=== PATIENT | male | born 1965 | race Caucasian/White ===

== ENCOUNTER 2017-08-15 10:22 | Outpatient (CLI) | payer BC ==
[2017-08-15 11:45] LABS: #Basophils 0.1 thou/uL (0.0-0.2); #Monocytes 0.8 thou/uL (0.11-0.59); #Neutrophils 5.6 thou/uL (1.40-6.50); %Basophils 1.1 % (0.0-1.0); %Eosinophils 9.2 % (0.0-10.0); %Lymphocytes 28.4 % (21.0-51.0); %Monocytes 7.8 % (0.0-10.0); Hematocrit 44.1 % (42.0-52.0); Mean Platelet Volume 6.6 fL (7.4-10.4); Red Blood Cell (RBC) Count 4.62 mill/uL (4.70-6.10); White Blood Cell (WBC) Count 10.6 thou/uL (4.8-10.8)
[2017-08-15 12:02] LABS: Anion Gap 9 mmol/L (10-20); BUN (Urea Nitrogen) 12 mg/dL (8.4-25.7); Calc. Creatinine Clearance 0 mL/min (70-130); Calcium 9.4 mg/dL (7.8-10.44); Carbon Dioxide 28 mmol/L (22-29); Chloride 104 mmol/L (98-107); Estimated GFR-MDRD Greater than 90
== END 2017-08-15 10:23 | disposition home or self-care (01) ==
LOC: LABBT 10:22
PROVIDERS: ATTEND Specialist
DX: Z01.818 Encounter for other preprocedural examination (principal); K40.90 Unilateral inguinal hernia, without obstruction or gangrene, not specified as recurrent
CPT/HCPCS: 80048; 85025; 93005; 93010

== ENCOUNTER 2017-08-24 10:14 | Day surgery (SDC) | payer BC ==
[2017-08-15 10:30] VITALS: BMI 33.1
[2017-08-24] MEDS ORDERED: CEFAZOLIN/Water 2 GM/20 ML SYRINGE ONE (11:12)
[2017-08-24] MEDS ORDERED: Ketorolac Tromethamine 30 MG/ML VIAL ONE ×3 (11:12→18:14)
[2017-08-24] MEDS ORDERED: Betamet Acet/Betamet Na Ph 30 MG/5 ML VIAL ONE (12:28)
[2017-08-24] MEDS ORDERED: Bupivacaine PF 0.5% 30 ML VIAL ONE ×2 (12:28→12:29)
[2017-08-24] MEDS ORDERED: Midazolam HCl 2 mg/2 ml Vial ONE (12:40)
[2017-08-24] MEDS ORDERED: HYDROmorphone 0.5 MG/0.5 ML SYRINGE ONE (12:40)
[2017-08-24] MEDS ORDERED: Fentanyl 100 MCG/2 ML VIAL ONE ×2 (12:40→14:50)
[2017-08-24] MEDS ORDERED: Lidocaine 2% w/Epinephrine 1:200K 20 ML VIAL ONE (12:45)
[2017-08-24] MEDS ORDERED: Propofol 200 MG/20 ML VIAL ONE (15:40)
[2017-08-24] MEDS ORDERED: Succinylcholine Chloride 20 MG/ML 10 ml SYRINGE FS ONE (15:40)
[2017-08-24] MEDS ORDERED: Ondansetron HCl/PF 4 MG/2 ML Vial ONE (15:40)
[2017-08-24] MEDS ORDERED: Lidocaine 1% PF 5 ML VIAL ONE (15:40)
[2017-08-24] MEDS ORDERED: Dexamethasone 20 MG/5 ML VIAL ONE (15:40)
[2017-08-24] MEDS ORDERED: HYDROcodone/Acetaminophen 5/325 mg Tablet ONE (19:32)
--- NOTE | 2017-08-25 08:14 | OP ---
DATE OF PROCEDURE: 08/24/2017 SURGEON: Valentin Perez MD. GAS ENGINE OPERATOR GENERATORS: Danny Lira. COMPLICATIONS: None. PREOPERATIVE DIAGNOSES: Two flexor digitorum profundus and superficialis laceration with digital nerv e laceration, radial side. POSTOPERATIVE DIAGNOSES: 1. Intact digital arteries 100% digital nerve laceration just proximal PIP joint radial, all these a t the left index finger. 2. Flexor digitorum profundus 100% laceration, retraction of flexor digitorum profundus into the pal m. 3. Flexor digitorum superficialis laceration 50% at the level of PIP joint as well. COMPLICATIONS: None. TOURNIQUET TIME: 81 minutes. ANESTHESIA: Augmented with 8 mL metacarpal block 0.5% Marcaine, no epinephrine. ANESTHESIA: General LMA technique, YARD SWITCH OPERATOR, Young, and Cymro anesthesia. PROCEDURES PERFORMED: 1. Debridement of wound down to, but not including bone. 2. Closure of wound 1 cm. 3. Neuroplasty ulnar, radial digital nerve. 4. Radial digital nerve microscopic repair. 5. Retrieval of flexor digitorum profundus into the palm proximal to the A1 riley. 6. Repair of flexor digitorum superficialis zone 2. 7. Repair of flexor digitorum profundus zone 2. COMPLICATIONS: None. TOURNIQUET TIME: 81 minutes. INDICATIONS: The patient had a laceration to his index finger just proximal to the PIP joint and com plete loss of sensation in radial aspect, intact ulnar aspect, normal circulation and could flex his PIP joint to 90 degrees, but could not flex the DIP whatsoever. DESCRIPTION OF PROCEDURE: After successful anesthesia, the limb was prepped and draped. Augmented a nesthesia with Marcaine as listed above. We then exsanguinated the limb, inflated tourniquet to 250 mmHg. Extended an incision 2 cm distal and 2 cm proximal, dissected down and I did a neuroplasty of both ne urovascular bundles in the ulnar side with the artery was intact in the radial side. The nerve was c ompletely cut, but the artery was intact. We then were able to visualize that the sheath was lacerated over 1 cm area and most of A3 riley in the region where the laceration took place. We then repaired the flexor nerve profundus which was 50 % torn on each aspect both radial and ulnar where we used a clrycb-rl-hhruu suture on one side alone and where there was 25% tear on the radial side, ulnar side was 50% tear, we used a modified Lin with a circumferential 6-0 running suture. We had to go into the palm to retrieve the flexor digitorum profundus proximally, brought this canal in appropriate orientation with the repair of flexor digitorum superficialis and repaired it with the Zhou-Silvia loop suture technique, . We then visualized the neurovascular bundle on the radial side brought the microscopic into field, re sected a small amount of the nerve and did a nerve repair/neurorrhaphy using a 9-0 suture and it was excellent repair. We released the tourniquet, excellent circulation. Repaired the wound with 4-0 ny chasity, placed them in a Kleinert-type splint made of Orthoplast, PIP joints at 20 degrees of flexion an d he left the operating room with pink digits. No complications.
--- NOTE | 2017-08-27 06:47 | OP ---
DATE OF OPERATION: 08/24/2017 PREOPERATIVE DIAGNOSIS: Right inguinal hernia. POSTOPERATIVE DIAGNOSIS: Right inguinal hernia, direct. OPERATION PERFORMED: Robotic repair of large direct right inguinal hernia with a ProGrip mesh patch. SURGEON: Pipe Cramer M.D. ANESTHESIA: General endotracheal. INDICATIONS: The patient is a 52-year-old white male. He was recently diagnosed with a fairly large visible and palpable right inguinal hernia. He is taken to the operating room at this time for repa ir. Of note, the patient sustained an injury to flexor tendon of one of his fingers and Dr. Perez plans to address this surgically under the same anesthetic upon the completion of my portion of the operation. DESCRIPTION OF OPERATION: Informed consent was obtained. The patient was taken to the operating kiersten m where general endotracheal anesthesia was obtained with the patient in supine position. The hair w as trimmed from abdomen. Herrera catheter was placed. Abdomen was prepped with ChloraPrep and draped in sterile fashion. Local anesthetic was infiltrated using 0.25% Marcaine with epinephrine. Transve rse supraumbilical incision was created and Veress needle was passed into the peritoneal cavity and p neumoperitoneum was established using carbon dioxide up to a pressure of 15 mmHg. A 12-mm trocar por t was passed through this same incision. Laparoscopic camera was passed through this port. Under di rect vision, I placed 2 additional 8-mm robotic ports on either side of midline. The robot was docke d to the ports and camera and the operation was continued from the robotic console. Initial examination revealed that there was an obvious large direct inguinal hernia on the right. Th ere was some omentum present within this that was removed uneventfully. A transverse peritoneal inci gretchen was created several centimeters superior to the hernia. Preperitoneal dissection was carried in feriorly. On the medial aspect, I dissected the pubic tubercle and Jon's ligament. The hernia sa c was dissected out of the large direct inguinal hernia. There was a fair amount of preperitoneal fa tty contents within the defect that was dissected as well. The defect was very medial and was close to being adjacent to Jon's ligament and the pubic tubercle. Therefore, to make sure I had enough mesh overlap, I dissected further along the pubic tubercle after mobilizing the bladder off of the pu bic symphysis. Dissection was carried out laterally to give room for the mesh patch. The peritoneum was widely diss ected off of the cord structures and the vas deferens. A 10 x 15 cm ProGrip mesh patch was obtained and passed into the abdominal cavity. It was situated in the preperitoneal space in the usual fashio n and unfolded longitudinally. It was positioned as far medially as I dissected and unfurled so as t o give excellent coverage over the direct hernia defect. Prior to placing the mesh, I had placed a single interrupted suture of 3-0 Vicryl within the direct h ernia defect to try to get better tissue approximation for the immediate perioperative period. I was able to approximate the 2 sides to make it less likely that the mesh could slide into the large defe ct. After the mesh was successfully deployed and laid flat within the preperitoneal space and all of the preperitoneal fatty tissue that had been within the hernia defect with external to the mesh, I placed a single suture of 3-0 Vicryl through the mesh into the pubic tubercle, to again minimize the chance of mesh migration during the initial healing phase. The peritoneum was then closed with a running s uture of 3-0 Stratafix. There were no complications and negligible blood loss. The 12-mm fascial defect was closed with 0 Vicryl suture using a GraNee needle. All ports and instru ments were removed under direct vision. Pneumoperitoneum was carefully evacuated. Quarter percent M arcaine with epinephrine was infiltrated in each port site. Skin edges approximated with 4-0 Monocry l subcuticular suture. Dermabond was placed externally. There were no complications. The patient t olerated the procedure well and was taken to recovery room in stable condition.
== END 2017-08-24 20:15 ==
LOC: SDC 10:14
PROVIDERS: ATTEND Specialist
PROC: 01N40ZZ Release Ulnar Nerve, Open Approach (ICD-10-PCS; principal; 2017-08-24)
PROC: 0LQ80ZZ Repair Left Hand Tendon, Open Approach (ICD-10-PCS; principal; 2017-08-24)
PROC: 01N60ZZ Release Radial Nerve, Open Approach (ICD-10-PCS; principal; 2017-08-24)
DX: S64.491A Injury of digital nerve of left index finger, initial encounter (principal); S66.121A Laceration of flexor muscle, fascia and tendon of left index finger at wrist and hand level, initial encounter; Z79.899 Other long term (current) drug therapy; Z98.890 Other specified postprocedural states
CPT/HCPCS: 96372; J0131; J0702; J1100; J1170; J1885; J2001; J2250; J2405; J2704; J3010; S0020

== ENCOUNTER 2018-09-19 01:38 | Emergency (ER) | payer BC ==
[2018-09-19 02:12] LABS: #Basophils 0.1 thou/uL (0.0-0.2); #Eosinphils 0.3 thou/uL (0.0-0.7); #Lymphocytes 3.1 thou/uL (1.20-3.40); #Monocytes 0.9 thou/uL (0.11-0.59); #Neutrophils 6.2 thou/uL (1.40-6.50); %Basophils 0.7 % (0.0-1.0); %Eosinophils 2.8 % (0.0-10.0); %Lymphocytes 29.3 % (21.0-51.0); %Monocytes 8.7 % (0.0-10.0); %Neutrophils 58.5 % (42.0-75.0); Hemoglobin 14.1 g/dL (14.0-18.0); Mean Corpuscular HGB CONC 34.2 g/dL (32.0-36.0); Mean Corpuscular Hemoglobin 31.6 pg (27.0-31.0); Mean Corpuscular Volume 92.4 fL (78.0-98.0); Mean Platelet Volume 6.9 fL (7.4-10.4); Platelet Count 285 thou/uL (130-400); RBC Distribution Width 11.9 % (11.5-14.5); Red Blood Cell (RBC) Count 4.46 mill/uL (4.70-6.10); White Blood Cell (WBC) Count 10.6 thou/uL (4.8-10.8)
[2018-09-19 02:55] LABS: ALT (SGPT) 45 U/L (8-55); AST (SGOT) 30 U/L (5-34); Albumin 4.1 g/dL (3.5-5.0); Alkaline Phosphatase 86 U/L (40-150); Anion Gap 13 mmol/L (10-20); BUN (Urea Nitrogen) 19 mg/dL (8.4-25.7); Bilirubin, Total 0.5 mg/dL (0.2-1.2); Calc. Creatinine Clearance 0 mL/min (70-130); Calcium 9.4 mg/dL (7.8-10.44); Carbon Dioxide 26 mmol/L (22-29); Chloride 102 mmol/L (98-107); Estimated GFR-MDRD Greater than 90; Globulin 2.5 g/dL (2.4-3.5); Glucose 111 mg/dL (70-105); Potassium 4.2 mmol/L (3.5-5.1); Protein, Total 6.6 g/dL (6.0-8.3); Sodium 137 mmol/L (136-145)
[2018-09-19 03:58] LABS: Bilirubin Negative (Negative); Blood, Urine Negative (Negative); Clarity CLEAR (Clear); Glucose, Urine (Dipstick) Negative (Negative); Leukocyte Negative (Negative); Nitrite Negative (Negative); Protein, Urine (Dipstick) Negative (Neg-Trace); Specific Gravity, Urine 1.024 (1.002-1.036); Urobilinogen 0.2 mg/dL (0.2-1.0); pH, Urine 5.5 (5.0-9.0)
[2018-09-19] MEDS ORDERED: Ketorolac Tromethamine 30 MG/ML VIAL ONE (04:17)
--- NOTE | 2018-09-19 08:25 | CT ---
PRELIMINARY REPORT/[facility]/EMERGENTY AFTER-HOURS PROCEDURE CT Abdomen and Pelvis With Contrast EXAM DATE/TIME: 09/19/2018 3:01 AM CLINICAL HISTORY: 53 years old, male; Pain; Abdominal pain; Generalized; Patient HX: [email or web address] presents to the ed C/O lower a bd pain onset 1600 yesterday afternoon, worsening this am. Reports the pain woke him up around midnig ht. States that he had similar symptoms in past that was dx as acid reflux. reports that PT. Had a small fall 3- steps up a ladder before pain onset. HX of HTN, takes lisinopril. TECHNIQUE: Axial computed tomography images of the abdomen and pelvis with intravenous contrast. Coronal reformatted images were created and reviewed. COMPARISON: No relevant prior studies available. FINDINGS: Lower thorax: The lung bases are clear. Small hiatal hernia, 2.5 cm in diameter. There may be some mucosal/wall thickening involving the lower esophagus. This is nonspecific, but could represent evidence for esophagitis. Please correlate clinically. ABDOMEN: Liver: There is fatty infiltration of the liver. There is a very small 8mm low attenuation area in the left lobe of the liver. The appearance is nonsp ecific, but statistically this most likely represents a small cyst or cavernous hemangioma. Gallbladder and bile ducts: No definite gallbladder abnormality by CT. No biliary tree dilation. Pancreas: Unremarkable. Spleen: Unremarkable. Adrenals: Unremarkable. Kidneys and ureters: Unremarkable. Stomach and bowel: Possibility of somewhat thickened mucosa/wall in the distal antrum of the stomach. This is a nonspecific appearance, and could be transient on CT, but could also represent evidence fo r gastritis or peptic ulcer disease. Please correlate clinically. There are no CT findings to strongl y suggest diverticulitis. Appendix: The appendix is possibly identified and there are no suspicious findings for appendicitis. No pericecal inflammatory changes are seen. PELVIS: Bladder: Unremarkable as visualized. Reproductive: Unremarkable as visualized. ABDOMEN and PELVIS: Intraperitoneal space: No free air, ascites, or bowel distention. No abnormal mass or fluid collection in the pelvis. Bones/joints: No significant acute finding. Soft tissues: No significant acute finding. Vasculature: No evidence for abdominal aortic aneurysm. Lymph nodes: No retroperitoneal adenopathy. IMPRESSION: 1. No free air or bowel distention. 2. Possible thickened mucosa/wall in the distal stomach, see above discussion. 3. Small hiatal hernia. 4. Possibly some thickening of the lower esophagus, see above discussion. 5. No CT findings to suggest appendicitis or diverticulitis. 6. Other findings discussed above. Thank you for allowing us to participate in the care of your patient. Dictated and Authenticated by: Shree Goins MD 09/19/2018 3:44 AM Central Time ([place] & [place]) FINAL REPORT CT ABDOMEN AND PELVIS WITH IV CONTRAST: Technique: Multiple contiguous axial images were obtained through the abdomen and pelvis with IV enha ncement. FINDINGS: Liver, spleen, pancreas, adrenal glands and kidneys are unremarkable. Small bowel loops are of normal caliber. No acute intraabdominal process is identified. I am in agreement with the preliminary repor t. Code QA. POS: GABRIELA
== END 2018-09-19 05:32 | disposition home or self-care (01) ==
LOC: ERS 01:38
DX: R10.30 Lower abdominal pain, unspecified (principal); K21.9 Gastro-esophageal reflux disease without esophagitis; E78.5 Hyperlipidemia, unspecified; I10 Essential (primary) hypertension; Z79.899 Other long term (current) drug therapy
CPT/HCPCS: 74177; 80053; 81003; 83690; 85025; 96374; J1885